=== PATIENT | female | born 1960 | race Caucasian/White ===

== ENCOUNTER 2016-12-27 15:06 | Emergency (ER) | payer OTHER ==
[2016-12-27 15:20] VITALS: BP 101/55
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
[2016-12-27] MEDS ORDERED: KETOROLAC TROMETHAMINE 60 MG/2 ML VIAL IM ONE (15:39)
[2016-12-27] MEDS ORDERED: DIAZEPAM 5 MG/ML SYRG ONE (15:39)
[2016-12-27] MEDS: KETOROLAC TROMETHAMINE 60 MG/2 ML VIAL IM ONE ×2 (15:44→15:45)
[2016-12-27] MEDS: DIAZEPAM 5 MG/ML SYRG IM ONE ×2 (15:44→15:45)
--- OUTSIDE RECORDS SUMMARY | 2016-12-27 15:45 | XMS REPORT | Summary of Care ---
:1960 Author Organization [facility] Address [address] [place] [address] Care Team Providers Name Role Phone Trisha Wyatt Primary Care Physician Encounter Date(s): 07/04/16 - 07/04/16 [facility] Mayra Iqbal, [address] [place], [place] [id number] Discharge Diagnosis: Left shoulder pain Discharge Disposition: 01 Discharged to Home or Self Care Attending Physician: RISSA Palacios Referring Physician: RISSA Palacios Vital Signs Most recent to oldest [Reference Range]: 1 Peripheral Pulse Rate [60-100 bpm] 70 bpm (07/04/16 1:43 PM) Blood Pressure [90-130/60-90 mmHg] 137/81mmHg *HI* (07/04/16 1:43 PM) Mean Arterial Pressure, Cuff 100 mmHg (07/04/16 1:43 PM) Height/Length Estimated 167 cm (07/04/16 1:43 PM) Weight Estimated 87.2 kg (07/04/16 1:43 PM) BSA Estimated 2.01 m2 (07/04/16 1:43 PM) Body Mass Index Estimated 31.27 kg/m2 (07/04/16 1:43 PM) Problem List Condition Effective Dates Status Health Status Informant Allergic rhinitis(Confirmed) Active Allergies(Confirmed) Active Hypothyroid(Confirmed) Active Cancer of cervix(Confirmed) Active Degenerative disc disease(Confirmed) Active GERD - Gastro-esophageal reflux Active disease(Confirmed) Psoriasis(Confirmed) Active Sjogren's syndrome?/dry Active eyes(Confirmed) Allergies, Adverse Reactions, Alerts Substance Reaction Severity Status codeine C/O: itching Mild Active Hives Diclofenac Sodium Elevated liver enzymes Moderate Active Latex Acute respiratory distress Moderate Active statins MYOPATHY, UNSPECIFIED Moderate Active Vicodin1 Hives Mild Active C/O: itching C/O - vomiting 1This allergy was modified/entered as a correction; please review the history for original entry. Medications Macey Oral, 0 Refill(s) Start Date: 10/03/13 Stop Date: 07/20/14 Status: Completedamoxicillin-clavulanate 875 mg-125 mg oral tablet 1 tab(s), Oral, q12hr, # 20 tab(s), 0 Refill(s), Pharmacy: [facility] Start Date: 10/03/13 Stop Date: 07/20/14 Status: Completedaspirin 81 mg oral tablet 1 tab(s), Oral, Daily, # 30 tab(s), 0 Refill(s) Start Date: 10/03/13 Stop Date: 04/06/15 Status: CompletedBactrim DS 800 mg-160 mg oral tablet 1 tab(s), Oral, BID, X 7 days, # 14 tab(s), 0 Refill(s), Pharmacy: [facility] Start Date: 11/03/13 Stop Date: 11/10/13 Status: CompletedBentyl 20 mg oral tablet 1 tab(s), Oral, QID, X 10 days, # 40 tab(s), 0 Refill(s), Start Date: 06/20/16 19:23:00 [facility] Start Date: 06/20/16 Stop Date: 06/30/16 Status: Completedesomeprazole 40 mg oral delayed release capsule See Instructions, TAKE 1 CAPSULE TWICE A DAY, cap(s), 2 Refill(s), # 180, eRx: [facility] Start Date: 06/24/16 Status: OrderedFlonase 0.05 mg/inh nasal spray 1 spray(s), Nasal, BID, # 16 gm, 0 Refill(s) Start Date: 10/03/13 Stop Date: 05/08/14 Status: CompletedFlonase 50 mcg/inh nasal spray 1 spray(s), Nasal, BID, # 16 gm, 0 Refill(s), Start Date: 06/20/16 16:29:00 [facility] Start Date: 06/20/16 Status: Orderedfluconazole 150 mg oral tablet 1 tab(s), Oral, ONETIME, # 1 tab(s), 1 Refill(s), Pharmacy: [facility] Start Date: 11/03/13 Stop Date: 11/03/13 Status: Completedfluconazole 150 mg oral tablet 1 tab(s), Oral, ONETIME, # 1 tab(s), 1 Refill(s), Start Date: 04/06/15 9:28:00 CDT, Pharmacy: [facility] Start Date: 04/06/15 Stop Date: 08/09/15 Status: Completedfluticasone 50 mcg/inh nasal spray See Instructions, USE 1 SPRAY IN EACH NOSTRIL TWICE A DAY, # 3 spray(s), 3 Refill(s), Start Date: 09/19/14 17:16:43 CDT, Pharmacy: [facility] Start Date: 09/19/14 Stop Date: 10/02/15 Status: Completedfluticasone 50 mcg/inh nasal spray See Instructions, USE 1 SPRAY IN EACH NOSTRIL TWICE A DAY, spray(s), # 3, eRx: [facility] Start Date: 05/08/14 Stop Date: 09/19/14 Status: Completedfluticasone 50 mcg/inh nasal spray See Instructions, USE 1 SPRAY IN EACH NOSTRIL TWICE A DAY, # 3 spray(s), 3 Refill(s), Start Date: 10/02/15 14:31:23 CDT, Pharmacy: [facility] Start Date: 10/02/15 Stop Date: 06/20/16 Status: Completedlevothyroxine 100 mcg (0.1 mg) oral tablet See Instructions, 1 TAB(S) ORAL DAILY, unknown unit, 3 Refill(s), # 90, eRx: [facility] Start Date: 02/02/15 Stop Date: 04/11/15 Status: Completedlevothyroxine 88 mcg (0.088 mg) oral tablet See Instructions, 1 TAB(S) ORAL DAILY, tab(s), 3 Refill(s), # 90, eRx: [facility] Start Date: 02/21/16 Stop Date: 06/20/16 Status: Completedlevothyroxine 88 mcg (0.088 mg) oral tablet 1 tab(s), Oral, Daily, # 90 tab(s), 3 Refill(s), Start Date: 04/11/15 11:27:00 CDT, Pharmacy: [facility] Start Date: 04/11/15 Stop Date: 02/21/16 Status: Completedlevothyroxine 88 mcg (0.088 mg) oral tablet tab(s), Oral, Daily, 0 Refill(s), Start Date: 06/20/16 16:28:00 [facility] Start Date: 06/20/16 Status: Orderedmeloxicam Oral, Daily, 0 Refill(s) Start Date: 10/03/13 Stop Date: 03/20/14 Status: Discontinuedmeloxicam 15 mg oral tablet 1 tab(s), Oral, Daily, # 90 tab(s), 3 Refill(s), Start Date: 09/19/14 17:17:06 CDT, Pharmacy: [facility] Start Date: 09/19/14 Stop Date: 10/02/15 Status: Completedmeloxicam 15 mg oral tablet 1 tab(s), Oral, Daily, # 90 tab(s), 0 Refill(s), Start Date: 03/24/14 9:11:44 CDT, Pharmacy: [facility] Start Date: 03/24/14 Stop Date: 09/19/14 Status: Completedmeloxicam 15 mg oral tablet 1 tab(s), Oral, Daily, # 90 tab(s), 3 Refill(s), Start Date: 10/02/15 14:31:24 CDT, Pharmacy: [facility] Start Date: 10/02/15 Status: Orderedmeloxicam 15 mg oral tablet 1 tab(s), Oral, Daily, # 90 tab(s), 3 Refill(s), Pharmacy: [facility] Start Date: 03/20/14 Stop Date: 03/24/14 Status: CompletedNexIUM 40 mg oral delayed release capsule 1 cap(s), Oral, BID, # 180 cap(s), 3 Refill(s), Start Date: 02/27/15 9:16:00 CDT , Pharmacy: [facility] Start Date: 02/27/15 Stop Date: 06/24/16 Status: CompletedNexIUM 40 mg oral delayed release capsule 1 cap(s), Oral, BID, 0 Refill(s), Start Date: 12/26/13 8:34:00 CDT Start Date: 12/26/13 Stop Date: 02/27/15 Status: DiscontinuedPercocet 5/325 oral tablet See Instructions, PRN for pain, 1-2 tab(s) Oral q4-6hr PRN, # 10 tab(s), 0 Refill(s), other reason (Rx) Start Date: 02/24/14 Stop Date: 07/24/14 Status: DiscontinuedPlaquenil Sulfate 200 mg oral tablet 2 tab(s), Oral, Daily, # 180 tab(s), 2 Refill(s), Start Date: 11/21/15 9:00:52 CDT, Pharmacy: [facility] Start Date: 11/21/15 Stop Date: 05/06/16 Status: CompletedPlaquenil Sulfate 200 mg oral tablet 2 tab(s), Oral, Daily, # 180 tab(s), 3 Refill(s), Start Date: 05/06/16 14:01:38 [facility], Pharmacy: [facility] Start Date: 05/06/16 Status: OrderedPlaquenil Sulfate 200 mg oral tablet 2 tab(s), Oral, Daily, # 60 tab(s), 0 Refill(s), Start Date: 08/06/15 13:26:00 [facility], Pharmacy: [facility] Start Date: 08/06/15 Stop Date: 08/09/15 Status: CompletedPlaquenil Sulfate 200 mg oral tablet 2 tab(s), Oral, Daily, # 180 tab(s), 0 Refill(s), Start Date: 08/09/15 16:44:32 [facility], Pharmacy: [facility] Start Date: 08/09/15 Stop Date: 11/21/15 Status: CompletedpredniSONE 20 mg oral tablet See Instructions, with food, # 10 tab(s), 0 Refill(s), Pharmacy: [facility] Start Date: 12/26/13 Stop Date: 01/05/14 Status: CompletedpredniSONE 5 mg oral tablet 1 tab(s), Oral, Daily, # 14 tab(s), 0 Refill(s), Start Date: 11/01/15 11:16:00 CDT, Pharmacy: [facility] Start Date: 11/01/15 Stop Date: 05/06/16 Status: CompletedPremarin Oral, Daily, 0 Refill(s) Start Date: 10/03/13 Stop Date: 11/02/13 Status: DiscontinuedPremarin 0.3 mg oral tablet 1 tab(s), Oral, Daily, change is dose. LH, # 90 tab(s), 3 Refill(s), Start Date : 09/19/14 13:46:00 CDT, Pharmacy: [facility] Start Date: 09/19/14 Stop Date: 10/18/14 Status: CompletedPremarin 0.45 mg oral tablet 1 tab(s), Oral, Daily, # 90 tab(s), 3 Refill(s), Pharmacy: [facility] Start Date: 11/03/13 Stop Date: 09/19/14 Status: DiscontinuedPremarin 0.625 mg oral tablet 1 tab(s), Oral, Daily, # 90 tab(s), 0 Refill(s) Start Date: 11/02/13 Stop Date: 11/03/13 Status: DiscontinuedPremarin 0.625 mg oral tablet 1 tab(s), Oral, Daily, # 30 tab(s), 0 Refill(s), Start Date: 10/18/14 10:12:00 CDT, [facility] Start Date: 10/18/14 Stop Date: 08/09/15 Status: Completedpromethazine 25 mg oral tablet 1 tab(s), Oral, q4hr, PRN for nausea/vomiting, X 5 days, # 30 tab(s), 0 Refill(s ), Start Date: 06/20/16 19:23:00 [facility] Start Date: 06/20/16 Stop Date: 06/25/16 Status: CompletedRestasis 1 drop(s), OPTH, BID, # 30 vial(s), 0 Refill(s), Start Date: 10/03/13 8:08:00 CDT Start Date: 10/03/13 Stop Date: 10/02/15 Status: DiscontinuedRestasis 0.05% ophthalmic emulsion 1 drop(s), OPTH, BID, # 180 QS, 3 Refill(s), Start Date: 10/02/15 14:31:00 CDT, Pharmacy: [facility] Start Date: 10/02/15 Status: OrderedSalagen 5 mg oral tablet 1 tab(s), Oral, BID, # 180 tab(s), 0 Refill(s) Start Date: 10/03/13 Stop Date: 07/20/14 Status: CompletedSeptra DS 800 mg-160 mg oral tablet 1 tab(s), Oral, BID, X 10 days, # 20 tab(s), 0 Refill(s), Start Date: 08/18/14 8 :22:00 [facility], Pharmacy: [facility] Start Date: 08/18/14 Stop Date: 08/28/14 Status: CompletedSingulair qPM, 0 Refill(s) Start Date: 10/03/13 Stop Date: 05/23/14 Status: DiscontinuedSingulair 10 mg oral tablet 1 tab(s), Oral, qPM, # 90 tab(s), 3 Refill(s), Start Date: 06/13/14 15:25:13 [facility] , Pharmacy: [facility] Start Date: 06/13/14 Stop Date: 10/02/15 Status: CompletedSingulair 10 mg oral tablet 1 tab(s), Oral, qPM, # 90 tab(s), 0 Refill(s), Start Date: 05/23/14 16:14:00 [facility] , Pharmacy: [facility] Start Date: 05/23/14 Stop Date: 06/13/14 Status: CompletedSingulair 10 mg oral tablet 1 tab(s), Oral, qPM, # 90 tab(s), 3 Refill(s), Start Date: 10/02/15 14:31:25 CDT , Pharmacy: [facility] Start Date: 10/02/15 Status: OrderedSuprep Bowel Prep Kit oral liquid 177 mL, Oral, ONETIME, Take both bottles as directed the day prior to the colonoscopy., # 177 mL, 0 Refill(s), Start Date: 06/08/14 14:38:00 [facility], Pharmacy : [facility] Start Date: 06/08/14 Stop Date: 07/24/14 Status: CompletedSynthroid Daily, 0 Refill(s) Start Date: 10/03/13 Stop Date: 03/10/14 Status: DiscontinuedSynthroid 100 mcg (0.1 mg) oral tablet 1 tab(s), Oral, Daily, # 90 tab(s), 3 Refill(s), Pharmacy: [facility] Start Date: 03/10/14 Stop Date: 02/02/15 Status: CompletedValium 5 mg oral tablet See Instructions, 1-2 tab(s) Oral ONETIME 30-45 minutes prior to procedure, # 2 tab(s), 0 Refill(s), Start Date: 06/19/16 14:59:00 [facility], Pharmacy: [facility] Start Date: 06/19/16 Stop Date: 06/20/16 Status: CompletedVitamin D3 2000 intl units oral tablet 2 tab(s), Oral, Daily, 0 Refill(s), Start Date: 05/06/16 13:44:00 [facility] Start Date: 05/06/16 Status: OrderedVitamin D3 50,000 intl units oral capsule 1 cap(s), Oral, q7day, # 12 cap(s), 0 Refill(s), Start Date: 07/27/15 9:05:00 [facility], Pharmacy: [facility] Start Date: 07/27/15 Stop Date: 11/01/15 Status: Completed Results No data available for this section Immunizations Given and Recorded Vaccine Date Status Refusal Reason influenza virus vaccine, inactivated 04/14/12 Recorded tetanus/diphtheria/pertussis, acel(Tdap) 09/16/13 Recorded tetanus-diphth toxoids (Td) adult/adol 10/25/99 Recorded Procedures Procedure Date Related Diagnosis Body Site Colonoscopy1 07/24/14 Esophagogastroduodenoscopy2 07/24/14 Arthroscopy of rt knee 2009 DSI 2009 Colonoscopy 2008 Esophagogastroduodenoscopy 2007 Cholecystectomy 2002 [facility] - Laparoscopy assisted vaginal 1993 hysterectomy/BSO Punctal plugs Removal of several moles 1auto-populated from documented surgical [id number] from documented surgical case Social History No data available for this section Assessment and Plan No data available for this section
[2016-12-27] MEDS ORDERED: ACETAMINOPHEN 500 MG TABLET PO ONE (15:48)
[2016-12-27] MEDS ORDERED: CYCLOBENZAPRINE HCL 10 MG TABLET PO ONE (15:48)
[2016-12-27] MEDS ORDERED: CYCLOBENZAPRINE HCL 10 MG TABLET ONE (15:50)
[2016-12-27] MEDS ORDERED: SILVER SULFADIAZINE 50 APPL JAR TP ONE ×2 (16:01→16:15)
== END 2016-12-27 16:23 | disposition home or self-care (01) ==
LOC: ER 15:06
DX: S20.212A Contusion of left front wall of thorax, initial encounter (principal); S30.1XXA Contusion of abdominal wall, initial encounter; S40.022A Contusion of left upper arm, initial encounter; M79.641 Pain in right hand; V43.92XA Unspecified car occupant injured in collision with other type car in traffic accident, initial encounter; W22.10XA Striking against or struck by unspecified automobile airbag, initial encounter; Z87.891 Personal history of nicotine dependence